=== PATIENT | male | born 1995 | race African-American/Black ===

== ENCOUNTER 2018-07-07 09:30 | Emergency (ER) | payer MEDICAID ==
[~2018-07-07] VITALS: Ht 177.8 cm; Wt 75.0 kg
[2018-07-07] MEDS ORDERED: SODIUM CHLORIDE 0.9% 1,000 ML IV ONE (10:11)
[2018-07-07] MEDS ORDERED: ONDANSETRON HCL 4MG/2ML INJ IV STA (10:11)
[2018-07-07] MEDS ORDERED: FAMOTIDINE 20MG/2ML VIAL IV ONE (10:45)
[2018-07-07 10:55] LABS: BASOPHILS % 0.7 % (0.0-2.0); EOSINOPHILS % 0.5 % (0.0-5.0); HEMATOCRIT. 48.6 % (42.0-52.0); HEMOGLOBIN. 16.8 g/dL (14.0-18.0); LYMPHOCYTES % 17.6 % (20.0-50.0); MEAN CORPUSCULAR HEMOGLOBIN 31.8 pg (28.0-32.0); MEAN PLATELET VOLUME 7.7 fl (7.4-10.4); MONOCYTES % 7.6 % (2.0-8.0); NEUTROPHILS % 73.6 % (40.0-76.0); PLATELET 275 x1000/uL (130-400); RED BLOOD CELL COUNT 5.29 mill/uL (4.7-6.1); RED CELL DISTRIBUTION WIDTH 13.3 % (11.6-14.6)
[2018-07-07 11:02] LABS: INR 1.1; PROTHROMBIN TIME 10.6 sec (9.1-11.1)
[2018-07-07 11:04] LABS: CHLORIDE 104 mEq/L (98-107)
[2018-07-07 11:11] LABS: ETHANOL BLOOD < 10 mg/dL
[2018-07-07 11:24] LABS: CLARITY URINE CLEAR (CLEAR); COLOR URINE YELLOW (YELLOW); KETONES URINE NEGATIVE (NEGATIVE); LEUKOCYTE ESTERASE URINE NEGATIVE (NEGATIVE); NITRITE URINE NEGATIVE (NEGATIVE); OCCULT BLOOD URINE NEGATIVE (NEGATIVE); PH URINE 8.5 (4.5-8.0); PROTEIN URINE NEGATIVE (NEGATIVE); SPECIFIC GRAVITY URINE 1.014 (1.005-1.030); UROBILINOGEN URINE 0.2 E.U./dL (0.2-1.0)
[2018-07-07 11:42] LABS: *AMPHETAMINES SCREEN URINE NEGATIVE (NEGATIVE); *BARBITURATES SCREEN URINE NEGATIVE (NEGATIVE); *BENZODIAZEPINES SCREEN URINE NEGATIVE (NEGATIVE); *COCAINE SCREEN URINE NEGATIVE (NEGATIVE); CANNABINOID URINE SCREEN PRESUMTIVE POSITIVE (NEGATIVE); METHADONE URINE SCREEN NEGATIVE (NEGATIVE); OPIATES URINE SCREEN NEGATIVE (NEGATIVE); PHENCYCLIDINE URINE SCREEN NEGATIVE (NEGATIVE)
[2018-07-07 13:25] VITALS: BP 130/82
== END 2018-07-07 13:28 | disposition home or self-care (01) ==
LOC: ER 11:36
DX: R10.13 Epigastric pain (principal); F12.10 Cannabis abuse, uncomplicated; R07.89 Other chest pain
CPT/HCPCS: 36415; 71045; 80053; 80305; 81003; 83690; 84484; 85025; 85610; 93005; 96374; 96375; 99285; G0482; J2405; J3490; J7030

== ENCOUNTER 2018-09-03 14:38 | Emergency (ER) | payer MEDICAID, OTHER ==
[~2018-09-03] VITALS: Ht 177.8 cm; Wt 81.0 kg
[2018-09-03 15:07] VITALS: BP 132/65
[2018-09-03] MEDS ORDERED: CEFTRIAXONE SODIUM 250 MG/VIAL IM ONE (17:30)
[2018-09-03] MEDS ORDERED: AZITHROMYCIN 500 MG TABLET PO ONE (17:30)
[2018-09-03] MEDS ORDERED: LIDOCAINE HCL/PF 1% 10 MG/ML 5ML VIAL IJ ONE (17:45)
== END 2018-09-03 18:58 | disposition left against medical advice (07) ==
LOC: ER 14:38
DX: Z11.3 Encounter for screening for infections with a predominantly sexual mode of transmission (principal); F12.10 Cannabis abuse, uncomplicated; F17.200 Nicotine dependence, unspecified, uncomplicated
CPT/HCPCS: 96372; 99283; J0696; J3490

== ENCOUNTER 2018-09-28 22:32 | Emergency (ER) | payer MEDICAID, OTHER | END 2018-09-29 00:11 | disposition left against medical advice (07) | LOC: ER 22:32 | DX: R07.89 Other chest pain (principal); M25.562 Pain in left knee; R09.81 Nasal congestion; Z53.21 Procedure and treatment not carried out due to patient leaving prior to being seen by health care provider ==

== ENCOUNTER 2018-09-29 05:20 | Emergency (ER) | payer MEDICAID, OTHER ==
[~2018-09-29] VITALS: Ht 177.8 cm; Wt 84.0 kg
[2018-09-29 05:50] VITALS: BP 116/66
== END 2018-09-29 08:10 | disposition left against medical advice (07) ==
LOC: ER 05:20
DX: R07.9 Chest pain, unspecified (principal); Z53.21 Procedure and treatment not carried out due to patient leaving prior to being seen by health care provider

== ENCOUNTER 2018-09-30 21:42 | Emergency (ER) | payer MEDICAID, OTHER | END 2018-09-30 23:39 | disposition left against medical advice (07) | LOC: ER 21:48 | DX: Z53.21 Procedure and treatment not carried out due to patient leaving prior to being seen by health care provider (principal) ==

== ENCOUNTER 2018-10-01 05:52 | Emergency (ER) | payer OTHER ==
[~2018-10-01] VITALS: Ht 177.8 cm; Wt 85.0 kg
[2018-10-01] MEDS ORDERED: SODIUM CHLORIDE 0.9% 1,000 ML IV ONE (07:45)
[2018-10-01 08:20] LABS: CLARITY URINE CLEAR (CLEAR); COLOR URINE YELLOW (YELLOW); KETONES URINE NEGATIVE (NEGATIVE); LEUKOCYTE ESTERASE URINE NEGATIVE (NEGATIVE); NITRITE URINE NEGATIVE (NEGATIVE); OCCULT BLOOD URINE NEGATIVE (NEGATIVE); PROTEIN URINE NEGATIVE (NEGATIVE); SPECIFIC GRAVITY URINE 1.004 (1.005-1.030); UROBILINOGEN URINE 0.2 E.U./dL (0.2-1.0)
[2018-10-01 08:21] LABS: BASOPHILS % 0.9 % (0.0-2.0); EOSINOPHILS % 0.6 % (0.0-5.0); HEMOGLOBIN. 16.8 g/dL (14.0-18.0); LYMPHOCYTES % 17.9 % (20.0-50.0); MEAN CORPUSCULAR HEMOGLOBIN 30.8 pg (28.0-32.0); MEAN CORPUSCULAR VOLUME 92.1 fL (80.0-94.0); MEAN PLATELET VOLUME 7.5 fl (7.4-10.4); MONOCYTES % 6.1 % (2.0-8.0); NEUTROPHILS % 74.5 % (40.0-76.0); PLATELET 275 x1000/uL (130-400); RED BLOOD CELL COUNT 5.43 mill/uL (4.7-6.1); RED CELL DISTRIBUTION WIDTH 13.8 % (11.6-14.6)
[2018-10-01 08:26] LABS: CHLORIDE 102 mEq/L (98-107)
[2018-10-01 08:51] LABS: *AMPHETAMINES SCREEN URINE NEGATIVE (NEGATIVE); *BARBITURATES SCREEN URINE NEGATIVE (NEGATIVE); *BENZODIAZEPINES SCREEN URINE NEGATIVE (NEGATIVE)
[2018-10-01 08:52] LABS: *COCAINE SCREEN URINE PRESUMTIVE POSITIVE (NEGATIVE); METHADONE URINE SCREEN NEGATIVE (NEGATIVE)
[2018-10-01 08:53] LABS: CANNABINOID URINE SCREEN PRESUMTIVE POSITIVE (NEGATIVE); OPIATES URINE SCREEN NEGATIVE (NEGATIVE)
[2018-10-01 08:55] LABS: PHENCYCLIDINE URINE SCREEN NEGATIVE (NEGATIVE)
[2018-10-01 12:34] VITALS: BP 134/74
== END 2018-10-01 13:08 | disposition home or self-care (01) ==
LOC: ER 08:26
DX: E86.0 Dehydration (principal); F17.200 Nicotine dependence, unspecified, uncomplicated; F12.10 Cannabis abuse, uncomplicated; F19.10 Other psychoactive substance abuse, uncomplicated
CPT/HCPCS: 36415; 80048; 80305; 81003; 85025; 96360; 96361; 99283; J7030; Z7610

== ENCOUNTER 2018-10-03 17:07 | Emergency (ER) | payer MEDICAID, OTHER ==
[~2018-10-03] VITALS: Ht 177.8 cm; Wt 81.2 kg
[2018-10-03 21:50] LABS: BASOPHILS % 0.6 % (0.0-2.0); EOSINOPHILS % 0.1 % (0.0-5.0); HEMATOCRIT. 53.8 % (42.0-52.0); HEMOGLOBIN. 18.2 g/dL (14.0-18.0); LYMPHOCYTES % 17.2 % (20.0-50.0); MEAN CORPUSCULAR HEMOGLOBIN 30.9 pg (28.0-32.0); MEAN CORPUSCULAR VOLUME 91.2 fL (80.0-94.0); MEAN PLATELET VOLUME 7.5 fl (7.4-10.4); MONOCYTES % 6.7 % (2.0-8.0); NEUTROPHILS % 75.4 % (40.0-76.0); PLATELET 282 x1000/uL (130-400)
[2018-10-03 21:55] LABS: CHLORIDE 101 mEq/L (98-107)
[2018-10-03 21:56] LABS: INR 1.1; PROTHROMBIN TIME 11.5 sec (9.1-11.1)
[2018-10-03] MEDS ORDERED: ONDANSETRON HCL 4MG/2ML INJ IV ONE (22:15)
[2018-10-03] MEDS ORDERED: SODIUM CHLORIDE 0.9% 1,000 ML IV ONE (22:15)
[2018-10-03 22:38] LABS: CLARITY URINE CLEAR (CLEAR); COLOR URINE YELLOW (YELLOW); KETONES URINE 1+ (NEGATIVE); LEUKOCYTE ESTERASE URINE NEGATIVE (NEGATIVE); NITRITE URINE NEGATIVE (NEGATIVE); OCCULT BLOOD URINE NEGATIVE (NEGATIVE); PROTEIN URINE TRACE (NEGATIVE); SPECIFIC GRAVITY URINE 1.025 (1.005-1.030)
[2018-10-03 22:58] LABS: *AMPHETAMINES SCREEN URINE NEGATIVE (NEGATIVE); *BARBITURATES SCREEN URINE NEGATIVE (NEGATIVE); *BENZODIAZEPINES SCREEN URINE NEGATIVE (NEGATIVE); *COCAINE SCREEN URINE NEGATIVE (NEGATIVE); METHADONE URINE SCREEN NEGATIVE (NEGATIVE); OPIATES URINE SCREEN NEGATIVE (NEGATIVE)
[2018-10-03 22:59] LABS: CANNABINOID URINE SCREEN PRESUMTIVE POSITIVE (NEGATIVE); PHENCYCLIDINE URINE SCREEN NEGATIVE (NEGATIVE)
[2018-10-04] MEDS ORDERED: SODIUM CHLORIDE 0.9% 1,000 ML IV ONE (00:15)
[2018-10-04] MEDS ORDERED: ONDANSETRON HCL 4MG/2ML INJ IV ONE (00:15)
[2018-10-04 02:11] VITALS: BP 114/63
== END 2018-10-04 02:10 | disposition home or self-care (01) ==
LOC: ER 17:07
DX: R10.13 Epigastric pain (principal); R11.2 Nausea with vomiting, unspecified; F14.10 Cocaine abuse, uncomplicated; F12.10 Cannabis abuse, uncomplicated
CPT/HCPCS: 36415; 80053; 80305; 81003; 83690; 85025; 85610; 96361; 96374; 96376; 99283; J2405; J7030

== ENCOUNTER 2018-11-13 10:06 | Emergency (ER) | payer MEDICAID, OTHER ==
[~2018-11-13] VITALS: Ht 177.8 cm; Wt 82.0 kg
[2018-11-13 10:12] VITALS: BP 134/77
[2018-11-13] MEDS ORDERED: METOCLOPRAMIDE HCL 10MG/2ML VIAL IV STA (14:11)
[2018-11-13] MEDS ORDERED: VISCOUS LIDOCAINE 2% 15 ML UDC PO STA (14:11)
[2018-11-13] MEDS ORDERED: MAGNESIUM/ALUMINUM HYDROXIDE/SIMETHICONE 30ML UDC PO STA (14:11)
[2018-11-13] MEDS ORDERED: FAMOTIDINE 20MG/2ML VIAL IV STA (14:11)
[2018-11-13] MEDS ORDERED: KETOROLAC 30MG/ML VIAL IV ONE (14:15)
== END 2018-11-13 15:32 | disposition left against medical advice (07) ==
LOC: ER 10:06
DX: Z53.21 Procedure and treatment not carried out due to patient leaving prior to being seen by health care provider (principal)
CPT/HCPCS: 73630

== ENCOUNTER 2018-11-19 12:02 | Emergency (ER) | payer MEDICAID ==
[~2018-11-19] VITALS: Ht 177.8 cm; Wt 80.0 kg
[2018-11-19] MEDS ORDERED: KETOROLAC 30MG/ML VIAL IM ONE (14:45)
[2018-11-19 16:25] VITALS: BP 130/77
== END 2018-11-19 16:26 | disposition home or self-care (01) ==
LOC: ER 12:13
DX: M79.672 Pain in left foot (principal); M79.671 Pain in right foot; F12.10 Cannabis abuse, uncomplicated
CPT/HCPCS: 73630; 73650; 96372; 99283; J1885

== ENCOUNTER 2019-03-09 05:14 | Emergency (ER) | payer MEDICAID ==
[~2019-03-09] VITALS: Ht 177.8 cm; Wt 82.0 kg
[2019-03-09] MEDS ORDERED: SODIUM CHLORIDE 0.9% 1,000 ML IV ONE (06:20)
[2019-03-09] MEDS ORDERED: CEFTRIAXONE SODIUM 250 MG/VIAL IM ONE (06:30)
[2019-03-09] MEDS ORDERED: LIDOCAINE HCL 1% 20ML VIAL (Pyxis) INJ INFIL ONE (06:30)
[2019-03-09] MEDS ORDERED: AZITHROMYCIN 500 MG TABLET PO ONE (06:30)
[2019-03-09 06:41] LABS: HEMATOCRIT. 48.3 % (42.0-52.0); HEMOGLOBIN. 16.6 g/dL (14.0-18.0); MEAN CORPUSCULAR HEMOGLOBIN 31.3 pg (28.0-32.0); MEAN PLATELET VOLUME 7.4 fl (7.4-10.4); PLATELET 277 x1000/uL (130-400); RED BLOOD CELL COUNT 5.31 mill/uL (4.7-6.1); RED CELL DISTRIBUTION WIDTH 13.2 % (11.6-14.6)
[2019-03-09 06:48] LABS: CHLORIDE 105 mEq/L (98-107)
[2019-03-09 07:09] LABS: CLARITY URINE CLEAR (CLEAR); COLOR URINE YELLOW (YELLOW); KETONES URINE NEGATIVE (NEGATIVE); LEUKOCYTE ESTERASE URINE NEGATIVE (NEGATIVE); NITRITE URINE NEGATIVE (NEGATIVE); OCCULT BLOOD URINE NEGATIVE (NEGATIVE); PROTEIN URINE NEGATIVE (NEGATIVE); SPECIFIC GRAVITY URINE 1.009 (1.005-1.030); UROBILINOGEN URINE 0.2 E.U./dL (0.2-1.0)
[2019-03-09 07:25] LABS: *AMPHETAMINES SCREEN URINE PRESUMTIVE POSITIVE (NEGATIVE); *BARBITURATES SCREEN URINE NEGATIVE (NEGATIVE); *BENZODIAZEPINES SCREEN URINE NEGATIVE (NEGATIVE); *COCAINE SCREEN URINE NEGATIVE (NEGATIVE); METHADONE URINE SCREEN NEGATIVE (NEGATIVE)
[2019-03-09 07:26] LABS: CANNABINOID URINE SCREEN PRESUMTIVE POSITIVE (NEGATIVE); OPIATES URINE SCREEN NEGATIVE (NEGATIVE); PHENCYCLIDINE URINE SCREEN PRESUMTIVE POSITIVE (NEGATIVE)
[2019-03-09 07:28] LABS: PLATELET ESTIMATE NORMAL
[2019-03-09 08:27] LABS: CREATINE KINASE 186 IU/L (39-308)
[2019-03-09 09:00] VITALS: BP 115/55
== END 2019-03-09 09:25 | disposition home or self-care (01) ==
LOC: ER 05:14
DX: F19.10 Other psychoactive substance abuse, uncomplicated (principal); F12.10 Cannabis abuse, uncomplicated; F15.10 Other stimulant abuse, uncomplicated; E86.0 Dehydration; A64 Unspecified sexually transmitted disease; F17.200 Nicotine dependence, unspecified, uncomplicated
CPT/HCPCS: 36415; 80053; 80305; 81003; 82550; 85025; 96360; 96372; 99283; J0696; J3490; J7030; Z7610

== ENCOUNTER 2019-06-01 15:30 | Emergency (ER) | payer MEDICAID ==
[~2019-06-01] VITALS: Ht 177.8 cm; Wt 85.0 kg
[2019-06-01] MEDS ORDERED: KETOROLAC 30MG/ML VIAL IM ONE (17:00)
[2019-06-01 17:06] VITALS: BP 128/55
== END 2019-06-01 18:49 | disposition home or self-care (01) ==
LOC: ER 15:30
DX: S62.392A Other fracture of third metacarpal bone, right hand, initial encounter for closed fracture (principal); S62.394A Other fracture of fourth metacarpal bone, right hand, initial encounter for closed fracture; W01.0XXA Fall on same level from slipping, tripping and stumbling without subsequent striking against object, initial encounter; Y93.89 Activity, other specified; Y92.89 Other specified places as the place of occurrence of the external cause; Y99.8 Other external cause status; F12.10 Cannabis abuse, uncomplicated; F15.10 Other stimulant abuse, uncomplicated
CPT/HCPCS: 29125; 73130; 96372; 99283; J1885

== ENCOUNTER 2019-06-15 18:51 | Emergency (ER) | payer MEDICAID ==
[~2019-06-15] VITALS: Ht 177.8 cm; Wt 82.0 kg
[2019-06-15 20:06] VITALS: BP 123/58
== END 2019-06-16 01:36 | disposition left against medical advice (07) ==
LOC: ER 18:51
DX: Z53.21 Procedure and treatment not carried out due to patient leaving prior to being seen by health care provider (principal); F17.200 Nicotine dependence, unspecified, uncomplicated

== ENCOUNTER 2021-10-23 10:32 | Emergency (ER) | payer MEDICAID ==
[~2021-10-23] VITALS: Ht 175.3 cm; Wt 82.0 kg
[2021-10-23] MEDS ORDERED: VISCOUS LIDOCAINE 2% 15 ML UDC MM PRN (10:45)
[2021-10-23] MEDS ORDERED: HYDROCODONE/ACETAMINOPHEN 5/325MG TABLET PO ONE (10:45)
[2021-10-23 10:50] VITALS: BP 130/85
[2021-10-23] MEDS ORDERED: IBUP-2029 MT (10:58)
[2021-10-23] MEDS ORDERED: MAG355OR21 MT (10:58)
[2021-10-23] MEDS ORDERED: CLIN300C12 MT (10:58)
[2021-10-23] MEDS ORDERED: T3 PO (10:58)
[2021-10-23] MEDS ORDERED: FAMO10TA41 MT (10:58)
== END 2021-10-23 11:41 | disposition home or self-care (01) ==
LOC: ER 10:32
DX: K04.01 Reversible pulpitis (principal); K08.89 Other specified disorders of teeth and supporting structures; F12.10 Cannabis abuse, uncomplicated; Z79.899 Other long term (current) drug therapy
CPT/HCPCS: 99283

== ENCOUNTER 2023-12-11 14:28 | Emergency (ER) | payer MEDICAID, OTHER ==
[~2023-12-11] VITALS: Ht 182.9 cm; Wt 80.0 kg
[~2023-12-11 14:28] MED LIST: CLIN-194 MT; FAMO10TA41 MT; IBUP-2029 MT; MAG355OR21 MT; T3 PO
[2023-12-11 14:36] VITALS: BP 132/74; PULSE 108; RESP 16; TEMP 98.2; O2SAT 100
== END 2023-12-11 14:50 ==
LOC: ER 14:28
DX: S61.011A Laceration without foreign body of right thumb without damage to nail, initial encounter (principal); F12.90 Cannabis use, unspecified, uncomplicated; X58.XXXA Exposure to other specified factors, initial encounter; Y93.89 Activity, other specified; Y92.89 Other specified places as the place of occurrence of the external cause; Y99.8 Other external cause status
CPT/HCPCS: 99283